=== PATIENT | female | born 1940 | race Caucasian/White ===

== ENCOUNTER 2017-09-25 16:03 | Outpatient (CLI) | payer MEDICARE | END 2017-09-25 16:04 | disposition home or self-care (01) | LOC: LAB.WCP 16:03 | PROVIDERS: ATTEND Family Medicine | DX: E78.6 Lipoprotein deficiency (principal) | CPT/HCPCS: 36415 ==

== ENCOUNTER 2017-09-26 13:33 | Outpatient (CLI) | payer MEDICARE ==
[2017-09-26 20:14] LABS: CALCIUM 9.2 mg/dL (8.5-10.3); CREATININE 0.5 mg/dL (0.4-1.0); POTASSIUM 3.6 mmol/L (3.5-5.0)
== END 2017-09-26 13:34 ==
LOC: LAB.WCP 13:33
PROVIDERS: ATTEND Family Medicine
DX: E87.6 Hypokalemia (principal)
CPT/HCPCS: 36415; 80048

== ENCOUNTER 2017-11-04 09:52 | Outpatient (CLI) | payer MEDICARE ==
--- NOTE | 2017-11-06 15:10 | DEXA Report ---
DEXA SCAN: 11/04/2017 CLINICAL INDICATION: Postmenopausal. TECHNIQUE: Dual energy x-ray absorptiometry (DXA) was performed on a CytoViva system. Regions measured are the AP spine, femoral neck, and, if needed, forearm. COMPARISON: None. In accordance with the International Society for Clinical Densitometry (ISCD) guidelines, data from previous exams may be reanalyzed using current recommendations and techniques. This is done to allow a more accurate basis for comparison with the current study. FINDINGS The data for the lumbar spine is as follows: REGION BMD (g/cm/cm) T-SCORE Z-SCORE L1 0.868 -2.2 -0.2 L2 0.973 -1.9 0.1 L3 1.112 -0.7 1.2 L4 1.096 -0.9 1.1 TOTAL 1.020 -1.3 0.6 NOTE: All evaluable vertebrae are used for classification. The data for the hip is as follows: REGION BMD (g/cm/cm) T-SCORE Z-SCORE Neck 0.844 -1.4 0.7 TOTAL 0.855 -1.2 0.7 NOTE: The femoral neck or total proximal femur, whichever is lowest, is used for classification. IMPRESSION THE WHO CLASSIFICATION BASED ON THE INTERNATIONAL REFERENCE STANDARD IS OSTEOPENIA. THE FRACTURE RISK IS INCREASED. RECOMMENDATION: Patients with diagnosis of osteoporosis or osteopenia should have regular bone mineral density assessment. For those eligible for Medicare, routine testing is allowed once every 2 years. Testing frequency can be increased for patients who have rapidly progressing disease or for those who are receiving medical therapy to restore bone mass. COMMENT: World Health Organization (WHO) definitions for osteoporosis and osteopenia: NORMAL BMD: T-score at 1.0 or higher, fracture risk is low. OSTEOPENIA BMD: T-score between 1.0 and -2.5, fracture risk is increased. OSTEOPOROSIS BMD: T-score at 2.5 or lower, fracture risk high. National Osteoporosis Foundation recommends: 1. Obtain adequate dietary calcium (at least 1200 mg per day) and vitamin D (400 -800 international units per day). 2. Participate, as appropriate, in regular weightbearing and muscle- strengthening exercise. 3. Avoid tobacco use and reduce alcohol and caffeine intake. 4. For more detailed information see the website at www.NOF.org. TD: 11/04/2017 12:57 MTDHallie
== END 2017-11-04 09:53 | disposition home or self-care (01) ==
LOC: DI 09:52
PROVIDERS: ATTEND Family Medicine
DX: M85.89 Other specified disorders of bone density and structure, multiple sites (principal)
CPT/HCPCS: 77080

== ENCOUNTER 2019-04-10 14:05 | Outpatient (CLI) | payer MEDICARE ==
--- NOTE | 2019-04-10 15:55 | XRAY Report ---
Reason: ELDERLY FALL,GROIN PAIN,RIGHT,KNEE PAIN, RIGHT Procedure Date: 04/10/2019 Accession Number: [id number] / [id number] Procedure: XR - Hip w/Pelvis 2-3V RT CPT Code: FULL RESULT: EXAM: RIGHT HIP RADIOGRAPHY EXAM DATE: 04/10/2019 03:32 PM. CLINICAL HISTORY: Recent fall. Right hip pain and right knee pain. COMPARISON: PELVIS 3 VIEW 04/10/2019 2:50 PM. TECHNIQUE: 2 views. FINDINGS: Bones: There is a nondisplaced comminuted fracture of the right symphysis and medial right inferior pubic ramus. No other fractures identified. Joints: Normal. No dislocation. The hip joint space is preserved. Soft Tissues: Normal. No soft tissue swelling. IMPRESSION: Nondisplaced comminuted right pubic ring fracture as described above. RADIA The call report notification system was initiated by Dr. Rich Hess at 03:54 PM on 04/10/2019. ADDENDUM: 04/10/19 16:33 I spoke with referring physician at 1633 hours. ADDENDUM: 04/10/19 16:40 The above call report findings were discussed with Randa Alonzo by Dr. Rich Hess at 04:40 PM on 04/10/2019.
--- NOTE | 2019-04-10 15:57 | XRAY Report ---
Reason: ELDERLY FALL,GROIN PAIN,RIGHT,KNEE PAIN, RIGHT Procedure Date: 04/10/2019 Accession Number: [id number] / [id number] Procedure: XR - Pelvis 3 View CPT Code: FULL RESULT: EXAM: PELVIS RADIOGRAPHY EXAM DATE: 04/10/2019 03:32 PM. CLINICAL HISTORY: Right pelvic fracture following fall. COMPARISON: None. TECHNIQUE: 1 view. FINDINGS: Bones: There is a nondisplaced comminuted fracture of the right symphysis pubis and right inferior pubic ramus. No other findings. Joints: The visualized hip, pubis symphysis, and sacroiliac joints are preserved. No subluxation. Soft Tissues: Normal. No soft tissue swelling. IMPRESSION: Nondisplaced comminuted right pelvic ring fracture as discussed above. RADIA
--- NOTE | 2019-04-10 15:57 | XRAY Report ---
Reason: ELDERLY FALL,GROIN PAIN,RIGHT,KNEE PAIN, RIGHT Procedure Date: 04/10/2019 Accession Number: [id number] / [id number] Procedure: XR - Knee 2 View RT CPT Code: FULL RESULT: EXAM: RIGHT KNEE RADIOGRAPHY EXAM DATE: 04/10/2019 02:50 PM. CLINICAL HISTORY: Recent fall. Right knee pain. COMPARISON: None. TECHNIQUE: 3 views. FINDINGS: Bones: Normal. No fractures or bone lesions. Joints: Normal. No effusion. No subluxations. Soft Tissues: Normal. No soft tissue swelling. IMPRESSION: Normal knee radiography. RADIA
== END 2019-04-10 14:06 | disposition home or self-care (01) ==
LOC: DI 14:05
PROVIDERS: ATTEND Physician Assistant
DX: S32.89XA Fracture of other parts of pelvis, initial encounter for closed fracture (principal); M25.561 Pain in right knee
CPT/HCPCS: 72190

== ENCOUNTER 2020-11-15 08:00 | Outpatient (CLI) | payer MEDICARE ==
[2020-11-15 19:04] LABS: BASOPHILS % (AUTO) 0.4 %; EOSINOPHILS # (AUTO) 0.1 10^3/uL (0.0-0.7); EOSINOPHILS % (AUTO) 0.8 %; HGB - HEMOGLOBIN 12.6 g/dL (12.0-16.0); LYMPHOCYTES # (AUTO) 2.6 10^3/uL (1.5-3.5); LYMPHOCYTES % (AUTO) 32.7 %; MEAN CORPUSCULAR HEMOGLOBIN 29.4 pg (27.0-31.0); MEAN CORPUSCULAR VOLUME 86.7 fL (81.0-99.0); MEAN PLATELET VOLUME 9.1 fL (7.9-10.8); MONOCYTES # (AUTO) 0.7 10^3/uL (0.0-1.0); MONOCYTES % (AUTO) 9.3 %; NEUTROPHILS # (AUTO) 4.5 10^3/uL (1.5-6.6); NEUTROPHILS % (AUTO) 56.5 %; PLT - PLATELET COUNT 335 10^3/uL (130-450); RED BLOOD COUNT 4.28 10^6/uL (4.20-5.40); RED CELL DISTRIBUTION WIDTH 13.5 % (12.0-15.0)
[2020-11-15 19:20] LABS: HEMOGLOBIN A1c% 4.5 % (4.27-6.07)
[2020-11-15 19:36] LABS: ALBUMIN 4.1 g/dL (3.2-5.5); ALBUMIN/GLOBULIN RATIO 1.2 (1.0-2.2); ALKALINE PHOSPHATASE 99 IU/L (42-121); ALT ALANINE AMINOTRANSFERASE 35 IU/L (10-60); AST ASPARTATE AMINOTRANSFERASE 33 IU/L (10-42); BILIRUBIN,TOTAL 0.7 mg/dL (0.2-1.0); BUN - BLOOD UREA NITROGEN 8 mg/dL (6-20); CARBON DIOXIDE - CO2 26 mmol/L (21-32); CHLORIDE 92 mmol/L (101-111); CHOL/HDL RATIO 2.5 (<4.4); CHOLESTEROL 185 mg/dL; CREATININE 0.5 mg/dL (0.4-1.0); GLUCOSE 86 mg/dL (70-100); HDL CHOLESTEROL 74 mg/dL; LDL CHOLESTEROL,CALCULATED 95 mg/dL; LDL/HDL RATIO 1.3 (<4.4); TOTAL PROTEIN 7.6 g/dL (6.7-8.2); VLDL CHOLESTEROL 16 mg/dL
== END 2020-11-15 23:59 | disposition home or self-care (01) ==
LOC: LAB.WCP 08:00
PROVIDERS: ATTEND Family Medicine
DX: I10 Essential (primary) hypertension (principal); C85.90 Non-Hodgkin lymphoma, unspecified, unspecified site; R73.01 Impaired fasting glucose
CPT/HCPCS: 36415; 80053; 80061; 83036; 83615; 83721; 85025

== ENCOUNTER 2020-11-24 11:46 | Outpatient (CLI) | payer MEDICARE ==
[2020-11-24] MEDS ORDERED: IOVERSOL 320 100 ML VIAL IVP ONE (13:43)
--- NOTE | 2020-11-24 15:53 | CT Report ---
PROCEDURE: CHEST W INDICATIONS: CHRONIC COUGH, LYMPHOMA, BREAST CA CONTRAST: IV CONTRAST: Optiray 320 ml: 100 PO CONTRAST: *NO PO CONTRAST TECHNIQUE: After the administration of intravenous contrast, 5 mm thick sections acquired from the pulmonary api miguel angel to the posterior costophrenic angles. 7 mm thick coronal MIP reformats were acquired. For radia tion dose reduction, the following was used: automated exposure control, adjustment of mA and/or kV according to patient size. COMPARISON: None. FINDINGS: Image quality: There is mild motion artifact. Lungs and pleura: There is mild dependent atelectasis bilaterally. No acute consolidation. There is a small focus of nodular thickening along the left major fissure on series 4 image 140 measuring up to 4 mm which is nonspecific and may represent an intrapulmonary lymph node. Otherwise no suspicious ma ss lesions. There is a small calcified nodule in the left lower lobe consistent with sequelae of old granulomatous disease. No pleural effusions or pneumothorax. The trachea and central airways appear p atent. Mediastinum: Heart size is normal. There is a small amount of pericardial fluid superiorly. A small cystic collection is demonstrated in the anterior mediastinum measuring up to 1.9 x 1.2 cm. No medias tinal or hilar adenopathy by size criteria. Thoracic aorta and central pulmonary arteries are normal in size. Esophagus is normal in caliber. No hiatal hernia. There are bilateral paraspinous oval mass lesions along the T8 vertebral body, measuring up to 2.6 x 1.4 cm on the right and 1.6 x 1.0 cm on the left. There is extension through the bilateral neuroforam ruth at T7-T8 and T8-T9 with associated bilateral neuroforaminal narrowing including severe narrowing bilaterally at T8-T9 and severe narrowing on the right with mild narrowing on the left at T7-T8. Asso ciated extension into the epidural space is demonstrated bilaterally with moderate to severe spinal c anal narrowing posterior to the T8 vertebral body. Bones and chest wall: No discrete bony erosions. The visualized lower cervical spine demonstrates sc lerosis and mild anterior osteophyte of the C5 vertebral body. No axillary or supraclavicular adenopa thy by size criteria. There are postsurgical changes consistent with prior left mastectomy. Thyroid g land demonstrates a small nodule in the inferior left lobe measuring up to 5 mm. Abdomen: Visualized upper abdomen demonstrates hypoattenuation of the liver compatible with fatty in filtration. IMPRESSION: 1. Bilateral paraspinous mass lesions centered along the T8 vertebral body with extension through the bilateral neuroforamina into the epidural space in the spinal canal as described. There is associate d neuroforaminal narrowing including severe narrowing bilaterally at T8-T9 and on the right at T7-T8 as well as moderate to severe spinal canal narrowing. Findings most likely represent metastatic disea se. Recommend further evaluation with dedicated thoracic spine MRI if clinically indicated. Findings discussed with RACHANA Oconnell on 11/24/2020 at 3:45 PM. 2. Small focus of nodular thickening along the left major fissure is nonspecific and suggestive of a small intrapulmonary lymph node. Otherwise, no suspicious pulmonary nodules. 3. Small fluid collection within the anterior mediastinum. The finding is nonspecific but suggestive of a pericardial cyst or duplication cyst. Reviewed by: Kyler Sarah MD on 11/24/2020 3:51 PM PST Approved by: Kyler Sarah MD on 11/24/2020 3:51 PM PST Station ID: [id number]
== END 2020-11-24 11:47 | disposition home or self-care (01) ==
LOC: DI 11:46
PROVIDERS: ATTEND Family Medicine
DX: R05 Cough (principal); C85.90 Non-Hodgkin lymphoma, unspecified, unspecified site; C50.919 Malignant neoplasm of unspecified site of unspecified female breast
CPT/HCPCS: 71260; Q9967

== ENCOUNTER 2020-12-05 14:36 | Outpatient (CLI) | payer MEDICARE ==
[2020-12-05] MEDS ORDERED: GADOBUTROL 7.5 MMOL/7.5 ML VIAL ONE (15:04)
[2020-12-05] MEDS ORDERED: GADOBUTROL 7.5 MMOL/7.5 ML VIAL IVP ONE (15:56)
--- NOTE | 2020-12-05 19:29 | MRI Report ---
PROCEDURE: Thoracic Spine W/WO INDICATIONS: MASS OF THORACIC VERT CONTRAST: IV CONTRAST: Gadavist ml: 6 TECHNIQUE: Noncontrast sagittal T1 spin echo and T2 fast spin echo, sagittal STIR, axial T1 and T2 fast spin ech o through the thoracic spine. After the administration of contrast, axial and sagittal T1 spin echo with fat saturation through the thoracic spine. COMPARISON: Correlation is made with prior chest CT, 11/16/2020 FINDINGS: Image quality: Excellent. Alignment and curvature: There is accentuated thoracic kyphosis. No significant AP alignment abno rmality can be seen. Marrow: Numerous areas of abnormal bone marrow signal can be seen, with every visualized vertebral body affected. These lesions demonstrate increased signal on T1-weighted and STI R images and mixed signal on T1-weighted imaging. On postcontrast images, these lesions demonstrate v nba degrees of abnormal enhancement, with the most prominent areas of enhancement seen involving the T8 and T10 levels. Spinal cord: Visualized spinal cord is of normal signal and size, without abnormal enhancement. Paraspinous soft tissues: Paraspinous masses can be seen, which are worst at the T8 level and are mor e prominent on the right side than on the left. There is involvement of the neural foramina on the ri ght at T7-T8 and T8-T9 as well as to a more mild degree on the left at least T8-T9. Incidental note is made of right renal cysts. Miscellaneous: There is abnormally enhancing soft tissue seen involving the epidural space, which is most prominent at the T8 level, which is best seen on series 1201 image 7 and also seen on series 110 1 images 7 through 10. There is severe central canal narrowing with mass effect upon the spinal cord, as on series 701 image 7. 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 At the T8 level, there are soft tissue masses seen with involvement of the neural foramina. Epidural involvement with metastatic neoplasm is seen at the T8 level, with prominent mass effect upon the spi nal cord. Reviewed by: Josh Bello MD on 12/05/2020 6:28 PM AKST Approved by: Josh Bello MD on 12/05/2020 6:28 PM AK Station ID: [id number]
== END 2020-12-05 14:37 | disposition home or self-care (01) ==
LOC: DI 14:36
PROVIDERS: ATTEND Physician Assistant Medical
DX: M89.8X8 Other specified disorders of bone, other site (principal); D18.00 Hemangioma unspecified site; C79.51 Secondary malignant neoplasm of bone
CPT/HCPCS: 72157; A9585

== ENCOUNTER 2020-12-13 11:42 | Outpatient (CLI) | payer MEDICARE ==
[2020-12-13] MEDS ORDERED: IOVERSOL 320 100 ML VIAL IVP ONE ×2 (12:12→18:21)
[2020-12-13] MEDS ORDERED: IOPAMIDOL-300 50 ML VIAL ONE (12:12)
--- NOTE | 2020-12-13 15:26 | CT Report ---
PROCEDURE: Abdomen/Pelvis W INDICATIONS: CA METASTATIC TO BONE, LYMPHOMA,BREAST CA, HX MASS CONTRAST: IV CONTRAST: Optiray 320 ml: 100 PO CONTRAST: Isovue 300 ml50 TECHNIQUE: After the administration of intravenous contrast, 5 mm thick sections acquired from the diaphragms to the symphysis. 5 mm thick coronal and sagittal reformats were acquired. For radiation dose reducti on, the following was used: automated exposure control, adjustment of mA and/or kV according to lillie ent size. COMPARISON: CT chest with contrast, 11/24/2020. MRI thoracic spine with and without contrast, 021. FINDINGS: Image quality: Excellent. ABDOMEN: Lung bases: Lung bases are clear. Heart size is normal. Small hiatal hernia. Solid organs: There is hepatic steatosis. Liver is normal in size and enhancement. There is a 1.1 c m enhancing nodule in spleen. Spleen is normal in size. Gallbladder is normal. Biliary system is non dilated. Pancreas enhances normally. No adrenal nodules. Kidneys demonstrate normal size and enha ncement, without hydronephrosis. A 1.8 cm diameter low-density cortical nodule in the superior pole of the right kidney is most likely a cyst. Peritoneum and bowel: Bowel loops demonstrate normal wall thickness and caliber. Surgical clips in the right lower quadrant. No free fluid or air. Nodes and vessels: No retroperitoneal or mesenteric adenopathy by size criteria. Aorta and inferior vena cava are normal in size. Miscellaneous: No ventral hernias. PELVIS: Genitourinary: Bladder wall may be mildly thickened. Miscellaneous: No inguinal hernias or adenopathy. Bones: There are paraspinous masses at the level of T8. Since she's in T8, T9 and T10 are consistent with metastases. No vertebral body compression fractures. Old right pubic ramal fractures. There i s grade 1 anterolisthesis of L5 on S1. IMPRESSION: 1. No definitive primary neoplasm is identified in the abdomen or pelvis. 2. A 1.1 cm enhancing nodule in spleen. This could represent a flash hemangioma or metastasis. 3. No lymph adenopathy in abdomen or pelvis. 4. Paraspinous masses around T8 vertebral body. Please see comparison chest CT and thoracic MRI for d etail. 5. Lucencies in T8, T9, T10 consistent with osseous metastases. Reviewed by: Krishna Sandoval MD on 12/13/2020 3:25 PM PST Approved by: Krishna Sandoval MD on 12/13/2020 3:25 PM PST Station ID: [id number]
[2020-12-13] MEDS ORDERED: IOPAMIDOL-300 50 ML VIAL PO ONE (18:21)
== END 2020-12-13 11:43 | disposition home or self-care (01) ==
LOC: DI 11:42
PROVIDERS: ATTEND Family Medicine
DX: C50.919 Malignant neoplasm of unspecified site of unspecified female breast (principal); C85.90 Non-Hodgkin lymphoma, unspecified, unspecified site; C79.51 Secondary malignant neoplasm of bone; Z90.12 Acquired absence of left breast and nipple; D49.0 Neoplasm of unspecified behavior of digestive system
CPT/HCPCS: 74177; Q9967

== ENCOUNTER 2020-12-22 15:20 | Outpatient (CLI) | payer MEDICARE ==
--- NOTE | 2020-12-23 09:03 | MRI Report ---
PROCEDURE: Brain W/O INDICATIONS: METASTATIC BONE CA TECHNIQUE: Noncontrast axial T1 spin echo, axial T2 fast spin echo, sagittal and axial FLAIR, coronal T2 fast sp in echo, axial gradient echo, axial diffusion and ADC through the brain. COMPARISON: None. FINDINGS: Image quality: Excellent. CSF Spaces: Basal cisterns are patent. No extra-axial fluid collections. Ventricles are normal in size and shape. Brain: Global cerebral volume loss and mild to moderate chronic microvascular ischemic changes. No FL AIR signal abnormality to indicate vasogenic edema. No abnormal intracranial susceptibility. No restr icted diffusion to indicate recent ischemia. The major intracranial vascular flow-related signal void s are maintained. Midline structures are normal in configuration. Skull and face: No suspicious focal marrow signal abnormality in the calvarium, skull base, or visual ized upper cervical spine. Sinuses: Sinuses and mastoids are clear. IMPRESSION: No unenhanced MRI evidence of intracranial metastatic disease. No unenhanced MR evidence of metastatic disease in the calvarium or skull base. Reviewed by: Trey Stewart MD on 12/23/2020 9:02 AM PST Approved by: Trey Stewart MD on 12/23/2020 9:02 AM PST Station ID: [id number]
== END 2020-12-22 15:21 | disposition home or self-care (01) ==
LOC: DI 15:20
PROVIDERS: ATTEND Family Medicine
DX: C85.90 Non-Hodgkin lymphoma, unspecified, unspecified site (principal); C79.51 Secondary malignant neoplasm of bone; C50.919 Malignant neoplasm of unspecified site of unspecified female breast; Z90.10 Acquired absence of unspecified breast and nipple

== ENCOUNTER 2021-02-22 08:00 | Outpatient (CLI) | payer MEDICARE ==
[2021-02-22 18:32] LABS: CALCIUM 9.3 mg/dL (8.5-10.3); CREATININE 0.6 mg/dL (0.4-1.0)
== END 2021-02-22 23:59 | disposition home or self-care (01) ==
LOC: LAB.WCP 08:00
PROVIDERS: ATTEND Family Medicine
DX: E87.6 Hypokalemia (principal)
CPT/HCPCS: 36415; 80048

== ENCOUNTER 2021-05-10 11:48 | Outpatient (CLI) | payer MEDICARE ==
[2021-05-10 12:34] LABS: CREATININE 0.4 mg/dL (0.4-1.0)
[2021-05-10] MEDS ORDERED: GADOBUTROL 10 MMOL/10 ML VIAL ONE (12:50)
--- NOTE | 2021-05-10 16:10 | MRI Report ---
PROCEDURE: Thoracic Spine W/WO INDICATIONS: BONE CA CONTRAST: IV CONTRAST: Gadavist ml: 5.9 TECHNIQUE: Noncontrast sagittal T1 spin echo and T2 fast spin echo, sagittal STIR, axial T1 and T2 fast spin ech o through the thoracic spine. After the administration of contrast, axial and sagittal T1 spin echo with fat saturation through the thoracic spine. COMPARISON: Prior lumbar spine MRI, 12/05/2020. Correlation is also made with prior CT 11/24/2020. FINDINGS: Image quality: Motion artifact is noted. Alignment and curvature: There is accentuated thoracic kyphosis. No significant AP alignment abnormality can be seen. Marrow: Numerous foci of abnormal bone marrow signal can be seen, decreased T1-weighted signal and i ncreased STIR signal. The most prominent of these can be seen within the T8 and T7 vertebral bodies. However, every visualized vertebral body is affected. There is a minimal anterior compression deformi ty (approximately 10%) seen within the T8 vertebral body. This is similar in retrospect to the prior examination. The vertebral body heights otherwise are well preserved. Spinal cord: Visualized spinal cord is of normal signal and size, without abnormal enhancement. Paraspinous soft tissues: Enhancing paraspinous masses are again seen centered at the T8 level, right worse than left. The abnormal soft tissue measures 4.1 x 1.7 cm on the right (prior 4.3 x 2 cm) and 2.7 x 1.1 cm on the left (prior 2.5 x 1.1 cm). Miscellaneous: At the T7-T8 and T8-T9 levels, there is abnormal enhancing soft tissue seen encroachin g within the neural foramina with involvement within the anterior epidural space of the spinal canal, right worse than left. There is associated severe central canal narrowing seen at T7-T8. Moderate to severe neuroforaminal narrowing can be seen at T7-T8 and at T8-T9. This abnormal soft tissue is slig htly improved compared to the 12/05/2020 MRI examination. Generalized degenerative changes are seen, with scattered levels of mild disc space narrowing. Severa l levels of bridging anterior osteophytes are seen. IMPRESSION: Widespread bony metastatic disease is seen, which is similar to the prior examination. The abnormal soft tissue seen at T7-T8 and T8-T9 is overall decreased in prominence compared to the p rior MRI. Reviewed by: Josh Bello MD on 05/10/2021 3:09 PM CATHRYN Approved by: Josh Bello MD on 05/10/2021 3:09 PM CATHRYN Station ID: [id number]
[2021-05-10] MEDS: GADOBUTROL 10 MMOL/10 ML VIAL IVP ONE (17:40)
== END 2021-05-10 11:49 | disposition home or self-care (01) ==
LOC: DI 11:48
PROVIDERS: ATTEND Specialist
DX: C79.52 Secondary malignant neoplasm of bone marrow (principal); R93.7 Abnormal findings on diagnostic imaging of other parts of musculoskeletal system; D18.09 Hemangioma of other sites
CPT/HCPCS: 36415; 72157; 82565; 84520; A9585

== ENCOUNTER 2021-09-01 08:00 | Outpatient (CLI) | payer MEDICARE ==
[2021-09-01 14:37] LABS: ALBUMIN 4.1 g/dL (3.2-5.5); ALBUMIN/GLOBULIN RATIO 1.1 (1.0-2.2); CALCIUM 9.5 mg/dL (8.5-10.3); CREATININE 0.5 mg/dL (0.4-1.0); POTASSIUM 3.3 mmol/L (3.5-5.0); TOTAL PROTEIN 7.9 g/dL (6.7-8.2)
== END 2021-09-01 23:59 | disposition home or self-care (01) ==
LOC: LAB.WCP 08:00
PROVIDERS: ATTEND Family Medicine
DX: I10 Essential (primary) hypertension (principal)
CPT/HCPCS: 36415; 80053

== ENCOUNTER 2021-11-08 13:47 | Outpatient (CLI) | payer MEDICARE ==
[2021-11-08 14:23] LABS: CREATININE 0.5 mg/dL (0.4-1.0)
[2021-11-08] MEDS ORDERED: GADOBUTROL 7.5 MMOL/7.5 ML VIAL ONE (14:50)
[2021-11-08] MEDS ORDERED: GADOBUTROL 7.5 MMOL/7.5 ML VIAL IVP ONE (15:38)
--- NOTE | 2021-11-08 16:51 | MRI Report ---
PROCEDURE: Thoracic Spine W/WO INDICATIONS: HEMANGIOMA CONTRAST: IV CONTRAST: Gadavist ml: 5.8 TECHNIQUE: Noncontrast sagittal T1 spin echo and T2 fast spin echo, sagittal STIR, axial T1 and T2 fast spin ech o through the thoracic spine. After the administration of contrast, axial and sagittal T1 spin echo with fat saturation through the thoracic spine. COMPARISON: 05/10/2021, 12/05/2020 FINDINGS: Image quality: Motion artifact is noted. Alignment and curvature: There is accentuated thoracic kyphosis. No significant AP alignment abno rmality can be seen. Marrow: Widespread foci of bony metastatic disease can be seen, with involvement of each visualized b one. There is increased T2-weighted/STIR signal, decreased T1-weighted signal, and abnormal enhanceme nt seen at the sites of bony involvement. The involvement is worst within the mid thoracic spine, wit h focal abnormal STIR signal and abnormal enhancement seen within the T8 level. There is 10% loss of height anteriorly. Spinal cord: Visualized spinal cord is of normal signal and size, without abnormal enhancement. Paraspinous soft tissues: Abnormal enhancing soft tissue can be seen involving the mid thoracic spine . This is centered at the T8 level. At the T8-T9 level, there is involvement of the right-sided neura l foramen, with epidural involvement, which can be seen on series 1301 image 4. Mild neural foraminal and epidural involvement can be seen on the right at the T7-T8 level. Miscellaneous: Central canal and foramina appear widely patent at all scanned levels. IMPRESSION: Extensive involvement of bony metastatic disease can be seen, with a potential pathologic fracture ag ain seen at the T8 level. Overall, the volume of bony metastatic disease has mildly progressed compared to the prior MRI dated 05/10/2021. Soft tissue masses are seen centered at the T8 level, which are overall more prominent on the prior e xamination. Associated neuroforaminal involvement and epidural involvement can be seen, which has pro gressed at T7-T8 and at T8-T9 and is worst at the T8-T9 level. Reviewed by: Josh Bello MD on 11/08/2021 3:50 PM AKST Approved by: Josh Bello MD on 11/08/2021 3:50 PM AKST Station ID: [id number]
== END 2021-11-08 13:48 | disposition home or self-care (01) ==
LOC: DI 13:47
PROVIDERS: ATTEND Family Medicine
DX: D18.09 Hemangioma of other sites (principal); C79.51 Secondary malignant neoplasm of bone; R93.7 Abnormal findings on diagnostic imaging of other parts of musculoskeletal system
CPT/HCPCS: 36415; 72157; 82565; 84520; A9585